=== PATIENT | female | born 2000 | race Caucasian/White ===

== ENCOUNTER → 2019-03-17 | Outpatient (CLI) | payer BC ==
--- NOTE | 2019-03-17 16:04 | RADIOLOGY REPORT (SQ) ---
EXAM DESCRIPTION: VENOUS BILATERAL LOWER COMPLETED DATE/TIME: 03/17/2019 3:45 pm REASON FOR STUDY: EDEMA R23.0 CYANOSIS COMPARISON: None. TECHNIQUE: Dynamic and static wang scale and color images acquired of both lower extremity venous sy stems. Selected spectral images acquired with additional compression and augmentation maneuvers. Imag es stored on PACS. LIMITATIONS: None. FINDINGS: RIGHT LEG COMMON FEMORAL AND FEMORAL: Normal phasicity, compression and augmentation. No visualized echogenic m aterial on wang scale. No defects on color images. POPLITEAL: Normal compression and augmentation. No visualized echogenic material on wang scale. No de fects on color images. CALF VESSELS: Normal compression and augmentation. No visualized echogenic material on wang scale. No defects on color image. GSV AND SSV: Normal compression. No visualized echogenic material on wang scale. No defects on color images. ANY DEEP VENOUS INSUFFICIENCY: Not evaluated. ANY EVIDENCE OF POPLITEAL CYST: No. OTHER: No other significant finding. LEFT LEG COMMON FEMORAL AND FEMORAL: Normal phasicity, compression and augmentation. No visualized echogenic m aterial on wang scale. No defects on color images. POPLITEAL: Normal compression and augmentation. No visualized echogenic material on wang scale. No de fects on color images. CALF VESSELS: Normal compression and augmentation. No visualized echogenic material on wang scale. No defects on color images. GSV AND SSV: Normal compression. No visualized echogenic material on wang scale. No defects on color images. ANY DEEP VENOUS INSUFFICIENCY: Not evaluated. ANY EVIDENCE POPLITEAL CYST: No. OTHER: No other significant finding. IMPRESSION: NO EVIDENCE DVT OR SVT IN EITHER LEG. TECHNICAL DOCUMENTATION: JOB ID: [id number] [employer]- All Rights Reserved Reading location - IP/workstation name: [email or web address]
== END ==
LOC: SP 09:55
PROVIDERS: ATTEND Specialist
DX: R23.0 Cyanosis (principal)
CPT/HCPCS: 93970

== ENCOUNTER 2019-04-07 15:23 | Emergency (ER) | payer OTHER, BC ==
[2019-04-07 15:49] VITALS: BP 150/85
[2019-04-07] MEDS ORDERED: NAPROXEN 250 MG TABLET PO ONE (16:39)
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
== END 2019-04-07 17:24 | disposition home or self-care (01) ==
LOC: ER 15:23
DX: S89.92XA Unspecified injury of left lower leg, initial encounter (principal); V43.52XA Car driver injured in collision with other type car in traffic accident, initial encounter; Y92.488 Other paved roadways as the place of occurrence of the external cause
CPT/HCPCS: 99283

== ENCOUNTER 2019-04-27 17:58 | Emergency (ER) | payer BC ==
[2019-04-27 18:24] VITALS: BP 124/80
[2019-04-27] MEDS ORDERED: DIPH/PERTUSS(ACELL)/TETANUS VAC/PF 0.5 ML SYR (>=10YO) IM ONE (18:50)
[2019-04-27] MEDS ORDERED: IBUPROFEN 600 MG TABLET PO ONE (18:50)
--- NOTE | 2019-04-27 18:51 | ER Document Report ---
HPI - HPI Patient complains to provider of: Finger laceration Time Seen by Provider: 04/27/19 18:45 Pain Level: 1 Notes: 18-year-old female to the emergency department with complaints of a finger laceration to her left index finger that occurred just prior to arrival. She states that she is cutting some cabbage. She states that she is not up-to-date on her tetanus immunization. She states that she is right-hand dominant. She denies any change in range of motion or any numbness and tingling to the finger. - ROS Systems Reviewed and Negative: Yes All other systems reviewed and negative - CONSTITUTIONAL Constitutional: DENIES: Fever, Chills - EENT EENT: DENIES: Sore Throat, Ear Pain - NEURO Neurology: DENIES: Headache - CARDIOVASCULAR Cardiovascular: DENIES: Chest pain - RESPIRATORY Respiratory: DENIES: Trouble Breathing, Coughing - GASTROINTESTINAL Gastrointestinal: DENIES: Abdominal Pain, Nausea, Patient vomiting, Diarrhea - MUSCULOSKELETAL Musculoskeletal: REPORTS: Extremity pain Notes: Left index finger pain - DERM Skin Color: Normal Skin Problems: Laceration Notes: Laceration to the left index finger Past Medical History - General Information source: Patient - Social History Smoking Status: Never Smoker Chew tobacco use (# tins/day): No Frequency of alcohol use: None Drug Abuse: None Family History: None Patient has suicidal ideation: No Patient has homicidal ideation: No Musculoskeletal Medical History: Reports Hx Musculoskeletal Trauma Traumatic Medical History: Reports: Hx Fractures - left elbow Past Surgical History: Reports: Hx Orthopedic Surgery - Immunizations Immunizations up to date: Yes Hx Diphtheria, Pertussis, Tetanus Vaccination: Yes Vertical Provider Document - CONSTITUTIONAL Agree With Documented VS: Yes Exam Limitations: No Limitations General Appearance: WD/WN, No Apparent Distress - INFECTION CONTROL TRAVEL OUTSIDE OF THE [place] IN LAST 30 DAYS: No - HEENT HEENT: Atraumatic, PERRLA - NECK Neck: Normal Inspection, Supple - RESPIRATORY Respiratory: Breath Sounds Normal. negative: Rales, Rhonchi, Wheezing - CARDIOVASCULAR Cardiovascular: Regular Rate, Regular Rhythm, No Murmur - GI/ABDOMEN Gastrointestinal: Abdomen Soft, Abdomen Non-Tender - MUSCULOSKELETAL/EXTREMETIES Notes: There is a superficial laceration with bleeding controlled to the pad of the left index finger. It does not cross the joint line. Bleeding is controlled. There is no decrease in range of motion. She has 5 out of 5 strength in testing of both of her flexor tendons in the finger as well as her extensor tendon. There is no evidence for foreign body. Cap refill is less than 2 seconds. Rad ial pulses are intact and equal. Handgrip is 5 out of 5 bilaterally - NEURO Level of Consciousness: Awake, Alert Motor/Sensory: No Motor Deficit, No Sensory Deficit, No Pronator Drift - DERM Integumentary: Warm, Dry, Laceration - See musculoskeletal for discussion of finger laceration Course - Re-evaluation Re-evalutation: 04/27/19 19:41 Impression: Left index finger laceration. Applied Dermabond to it. Patient tolerated the procedure well. Will discharge home. She has had an updated tetanus today. - Vital Signs Vital signs: Temp Pulse Resp BP Pulse Ox 98.9 F 86 16 124/80 98 04/27/19 18:21 04/27/19 18:21 04/27/19 18:21 04/27/19 18:21 04/27/19 18:21 Procedures - Laceration/Wound Repair Left Finger 2nd digit Time completed: 19:31 Wound length (cm): 1 Wound's Depth, Shape: Superficial Laceration pre-procedure: Chloraprep applied Wound explored: Clean Wound Repaired With: Dermabond Post-procedure NV exam normal: Yes Complications: No Discharge - Discharge Clinical Impression: Laceration of left index finger Qualifiers: Encounter type: initial encounter Damage to nail status: without damage Foreign body presence: without foreign body Qualified Code(s): S61.211A - Laceration without foreign body of left index finger without damage to nail, initial encounter Condition: Stable Disposition: HOME, SELF-CARE Instructions: Skin Adhesive Closure ([facility]) Additional Instructions: Keep wound clean and dry. Do not immerse finger in water. Monitor for any worsening pain, fevers, redness, pus draining from the site. Referrals: MARCIA GARCÍA MD [Primary Care Provider] - Follow up in 1 week
== END 2019-04-27 19:40 | disposition home or self-care (01) ==
LOC: ER 17:58
DX: S61.211A Laceration without foreign body of left index finger without damage to nail, initial encounter (principal); W45.8XXA Other foreign body or object entering through skin, initial encounter; Y93.G9 Activity, other involving cooking and grilling; Z23 Encounter for immunization
CPT/HCPCS: 90471; 90715; 99282

== ENCOUNTER 2019-05-11 20:44 | Emergency (ER) | payer BC ==
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
[2019-05-12] MEDS ORDERED: LIDOCAINE 1%/EPINEPHRINE INJ 20 ML VIAL INJ ONE (00:12)
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
[2019-05-12] MEDS ORDERED: ONDANSETRON 4 MG TAB.RAPDIS ONE (01:52)
[2019-05-12] MEDS ORDERED: ONDANSETRON 4 MG TAB.RAPDIS PO ONE (01:54)
[2019-05-12 02:28] VITALS: BP 117/64
== END 2019-05-12 02:28 | disposition home or self-care (01) ==
LOC: ER 20:44
DX: S61.412A Laceration without foreign body of left hand, initial encounter (principal); W26.0XXA Contact with knife, initial encounter; Y93.89 Activity, other specified; R42 Dizziness and giddiness; R11.0 Nausea
CPT/HCPCS: 99282; 12001; S0119; J3490

== ENCOUNTER → 2019-05-27 | Outpatient (CLI) | payer BC ==
[2019-05-27 11:13] LABS: A TYPE INFLUENZA AG NEGATIVE (NEGATIVE); B INFLUENZA AG NEGATIVE (NEGATIVE)
== END ==
LOC: RDC 09:40
PROVIDERS: ATTEND Registered Nurse
DX: Z20.828 Contact with and (suspected) exposure to other viral communicable diseases (principal)
CPT/HCPCS: 87070; 87635; 87804; 87880

== ENCOUNTER 2020-03-13 13:50 | Emergency (ER) | payer BC ==
[2020-03-13] MEDS ORDERED: NORMAL SALINE 1000 ML 1,000 ML IV ONE ×2 (14:28→15:31)
[2020-03-13 14:34] LABS: ABSOLUTE BASOPHILS # (AUTO) 0.1 10^3/uL (0.0-0.2); ABSOLUTE EOSINOPHILS # (AUTO) 1.8 10^3/uL (0.0-0.6); ABSOLUTE LYMPHOCYTES (AUTO) 3.2 10^3/uL (0.5-4.7); ABSOLUTE MONOCYTES (AUTO) 0.5 10^3/uL (0.1-1.4); ABSOLUTE NEUT (AUTO) 4.4 10^3/uL (1.7-8.2); BASOPHILS % (AUTO) 0.6 % (0-2); EOSINOPHILS % (AUTO) 18.3 % (0-6); HEMATOCRIT 37.8 % (36.0-47.0); HEMOGLOBIN 12.6 g/dL (12.0-15.5); LYMPHOCYTES % (AUTO) 32.1 % (13-45); MEAN CORPUSCULAR HEMOGLOBIN 28.1 pg (27.0-33.4); MEAN CORPUSCULAR HGB CONC 33.3 g/dL (32.0-36.0); MEAN CORPUSCULAR VOLUME 84 fl (80-97); MONOCYTES % (AUTO) 5.2 % (3-13); PLATELET COUNT 267 10^3/uL (150-450); RED BLOOD COUNT 4.48 10^6/uL (3.72-5.28); SEGMENTED NEUTROPHILS % (AUTO) 43.8 % (42-78); TOTAL CELLS COUNTED % (AUTO) 100 %
--- NOTE | 2020-03-13 14:40 | ER Document Report ---
ED Syncope and Near Syncope - General Chief Complaint: Syncope Stated Complaint: DIZZINESS,SYNCOPAL EPISODE Time Seen by Provider: 03/13/20 14:25 Notes: HPI: 19-year-old female who presents today stating she is felt lightheaded and dizzy for about a week. She states it is completely positional only when she stands up from a seated or lying position. Patient is on clonidine 0.3 mg nightly that is increased this past week secondary to nightmares. She is also lost 10 pounds over the last 2 months. No fevers, vomiting, chest pain, cough, vomiting, weakness or numbness. No double or blurry vision or headaches. No history of syncope. ROS: See HPI All other review of systems reviewed and otherwise negative Reviewed vital signs and nursing note as charted by RN. PHYSICAL EXAM: CONSTITUTIONAL: Alert and oriented and responds appropriately to questions. Well-appearing; well-nourished HEAD: Normocephalic; atraumatic EYES: PERRL; no nystagmus ENT: Normal nose; no rhinorrhea; moist mucous membranes; pharynx without lesions noted NECK: Supple without meningismus; non-tender; no cervical lymphadenopathy, no masses CARD: Regular rate and rhythm; no murmurs; symmetric distal pulses RESP: Normal chest excursion without splinting or tachypnea; breath sounds clear and equal bilaterally; no wheezes, no rhonchi, no rales ABD/GI: Normal bowel sounds; non-distended; soft, non-tender; no palpable organomegaly or masses BACK: The back appears normal and is non-tender to palpation EXT: Normal ROM in all joints; non-tender to palpation; no edema SKIN: No acute lesions noted NEURO: CN 2-12 intact; 5/5 bilateral upper and lower extremity strength with sensation intact to light touch PSYCH: The patient's mood and manner are appropriate. Grooming and personal hygiene are appropriate. TRAVEL OUTSIDE OF THE [place] IN LAST 30 DAYS: No - Related Data Allergies/Adverse Reactions: No Known Allergies Allergy (Verified 04/27/19 18:49) Past Medical History - Social History Smoking Status: Unknown if Ever Smoked Family History: None Patient has homicidal ideation: No Musculoskeletal Medical History: Reports Hx Musculoskeletal Trauma Traumatic Medical History: Reports: Hx Fractures - left elbow Past Surgical History: Reports: Hx Orthopedic Surgery - left elbow - Immunizations Immunizations up to date: Yes Hx Diphtheria, Pertussis, Tetanus Vaccination: Yes Physical Exam - Vital signs Vitals: Temp Pulse Resp BP Pulse Ox 98.1 F 71 16 99/60 L 100 03/13/20 13:54 03/13/20 13:54 03/13/20 13:54 03/13/20 13:54 03/13/20 13:54 Course - Re-evaluation Re-evalutation: EKG shows a heart of 62, normal sinus rhythm, normal axis, no ST elevation or depression. 03/13/20 14:39 Given the above history and physical examination with recent increase in her nighttime clonidine medications from 0.2 mg to 0.3 mg daily with a 10 pound weight loss in the last 2 weeks, I will provide fluids and obtain basic labs and electrolytes as well as a urine test. I am concerned about the possibility of this being related to her clonidine and her recent weight loss. I will also add on a TSH and reassess. I do believe PE, ectopic , or cardiac dysrhythmia to be unlikely at this moment. 03/13/20 15:42 Labs as recorded. Patient feels better. Another half a liter of fluid is being provided. Had a long discussion with the patient regarding her nightmares and the large doses of clonidine that she takes. I have asked her to go back to 0.2 mg and to follow-up with her primary care physician regarding this medication and to return immediately with any repeat or worsening symptoms. - Vital Signs Vital signs: Temp Pulse Resp BP Pulse Ox 98.1 F 77 14 103/62 100 03/13/20 13:54 03/13/20 14:50 03/13/20 15:01 03/13/20 15:01 03/13/20 15:01 - Laboratory Results Result Diagrams: 03/13/20 14:17 03/13/20 14:17 Laboratory Results Interpreted: 03/13/20 03/13/20 14:17 14:17 Eos % (Auto) 18.3 H Absolute Eos (auto) 1.8 H Glucose 117 H Critical Laboratory Results Reviewed: No Critical Results - Radiology Results Critical Radiology Results Reviewed: No Critical Results Discharge - Discharge Clinical Impression: Lightheaded, Syncope and collapse Condition: Good Disposition: HOME, SELF-CARE Additional Instructions: Come back immediately with any lightheadedness, dizziness, repeat episodes of syncope, fevers or vomiting, chest pain, or any other acute problems. Please follow-up with the primary care physician for reassessment of the clonidine dosing as we have discussed. I recommend decreasing the dose to 0.1 or 0.2 mg at night and to make sure that you stay well-hydrated.
[2020-03-13 14:44] LABS: ALBUMIN 3.9 g/dL (3.5-5.0); ALKALINE PHOSPHATASE 53 U/L (38-126); ANION GAP 5 (5-19); ASPARTATE AMINO TRANSFERASE 22 U/L (14-36); BILIRUBIN,DIRECT 0.1 mg/dL (0.0-0.4); BILIRUBIN,TOTAL 0.2 mg/dL (0.2-1.3); BLOOD UREA NITROGEN 14 mg/dL (7-20); CALCIUM 9.4 mg/dL (8.4-10.2); CARBON DIOXIDE 28 mmol/L (22-30); CHLORIDE 104 mmol/L (98-107); GLUCOSE 117 mg/dL (75-110); POTASSIUM 3.9 mmol/L (3.6-5.0); TOTAL PROTEIN 6.5 g/dL (6.3-8.2)
[2020-03-13 16:43] VITALS: BP 102/67
--- NOTE | 2020-03-13 22:40 | EKG REPORT ---
SEVERITY:- NORMAL ECG - SINUS RHYTHM : Confirmed by: Rito Estrada 13-Mar-2020 22:39:44
== END 2020-03-13 16:43 | disposition home or self-care (01) ==
LOC: ER 13:50
DX: R42 Dizziness and giddiness (principal); R55 Syncope and collapse
CPT/HCPCS: 93005; 99284; 96360; 96361; 36415; 84443; 85025; 80053; 93010; J7030

== ENCOUNTER 2020-03-19 22:00 | Observation (INO) | payer BC ==
--- NOTE | 2020-03-20 00:08 | ER Document Report ---
ED Medical Screen (RME) - General Chief Complaint: Abscess Stated Complaint: ABSCESS BUTTOCKS Time Seen by Provider: 03/19/20 23:57 Primary Care Provider: MARCIA GARCÍA MD [Primary Care Provider] - Follow up as needed Mode of Arrival: Ambulatory Information source: Patient TRAVEL OUTSIDE OF THE [place] IN LAST 30 DAYS: No - HPI Patient complains to provider of: Rectal pain Notes: 03/20/20 00:06 Patient here with complaints of rectal pain. The patient states that over the last few days she has had progressively worsening pain near her rectum and has noticed a mass that has grown in this area. No history of abscess or hemorrhoids. She also complains of some mild lower abdominal discomfort at t imes. No fever. Exam: Nontoxic, no distress. Lungs clear and equal throughout. Heart sounds normal. 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 Patient noted to have a large fluctuant/indurated tender abscess along the superior aspect of her rectum. An initial examination was made on the patient as part of the triage process, and it was determined a more comprehensive evaluation was necessary. Initial orders were placed and patient was transferred to another provider in the ED who assumed care and finished evaluation and plan. - Related Data Allergies/Adverse Reactions: No Known Allergies Allergy (Verified 04/27/19 18:49) Past Medical History Musculoskeltal Medical History: Reports Hx Musculoskeletal Trauma Traumatic Medical History: Reports: Hx Fractures - left elbow Past Surgical History: Reports: Hx Orthopedic Surgery - left elbow - Immunizations Immunizations up to date: Yes Hx Diphtheria, Pertussis, Tetanus Vaccination: Yes Physical Exam - Vital signs Vitals: Temp Pulse Resp BP Pulse Ox 98.2 F 87 17 138/91 H 100 03/19/20 22:04 03/19/20 22:04 03/19/20 22:04 03/19/20 22:04 03/19/20 22:04 Course - Vital Signs Vital signs: Temp Pulse Resp BP Pulse Ox 98.2 F 87 17 138/91 H 100 03/19/20 22:04 03/19/20 22:04 03/19/20 22:04 03/19/20 22:04 03/19/20 22:04 Doctor's Discharge - Discharge Referrals: MARCIA GARCÍA MD [Primary Care Provider] - Follow up as needed
[2020-03-20 01:31] LABS: ABSOLUTE BASOPHILS # (AUTO) 0.1 10^3/uL (0.0-0.2); ABSOLUTE EOSINOPHILS # (AUTO) 2.2 10^3/uL (0.0-0.6); ABSOLUTE LYMPHOCYTES (AUTO) 2.9 10^3/uL (0.5-4.7); ABSOLUTE MONOCYTES (AUTO) 0.8 10^3/uL (0.1-1.4); ABSOLUTE NEUT (AUTO) 6.6 10^3/uL (1.7-8.2); BASOPHILS % (AUTO) 0.9 % (0-2); EOSINOPHILS % (AUTO) 17.4 % (0-6); HEMOGLOBIN 12.4 g/dL (12.0-15.5); MEAN CORPUSCULAR HEMOGLOBIN 28.1 pg (27.0-33.4); MEAN CORPUSCULAR HGB CONC 33.6 g/dL (32.0-36.0); MEAN CORPUSCULAR VOLUME 84 fl (80-97); PLATELET COUNT 231 10^3/uL (150-450); RED BLOOD COUNT 4.43 10^6/uL (3.72-5.28); RED CELL DISTRIBUTION WIDTH 14.1 % (11.5-14.0); SEGMENTED NEUTROPHILS % (AUTO) 52.7 % (42-78); TOTAL CELLS COUNTED % (AUTO) 100 %; WHITE BLOOD COUNT 12.5 10^3/uL (4.0-10.5)
[2020-03-20 01:52] LABS: ALKALINE PHOSPHATASE 68 U/L (38-126); ANION GAP 8 (5-19); ASPARTATE AMINO TRANSFERASE 29 U/L (14-36); BILIRUBIN,DIRECT 0.2 mg/dL (0.0-0.4); BILIRUBIN,TOTAL 0.3 mg/dL (0.2-1.3); BLOOD UREA NITROGEN 14 mg/dL (7-20); CALCIUM 9.7 mg/dL (8.4-10.2); CARBON DIOXIDE 27 mmol/L (22-30); CHLORIDE 106 mmol/L (98-107); GLUCOSE 100 mg/dL (75-110); TOTAL PROTEIN 6.7 g/dL (6.3-8.2)
--- NOTE | 2020-03-20 02:37 | ER Document Report ---
ED Skin Rash/Insect Bite/Abscs - General Chief Complaint: Abscess Stated Complaint: ABSCESS BUTTOCKS Time Seen by Provider: 03/19/20 23:57 Mode of Arrival: Ambulatory Notes: Patient is a 19 year old female that comes emergency department for chief complaint of about 3 days of worsening pain in the rectal area. She states that it feels like a mass, the area is gotten a lot bigger, she has very painful bowel movements, she is unable to sit down. She states she had a few chills today. She denies recent constipation, fever, nausea/vomiting, or any other complaints. She denies history of the same. She denies any surgeries or daily medications. She denies . TRAVEL OUTSIDE OF THE [place] IN LAST 30 DAYS: No - Related Data Allergies/Adverse Reactions: No Known Allergies Allergy (Verified 04/27/19 18:49) Past Medical History - General Information source: Patient - Social History Smoking Status: Never Smoker Frequency of alcohol use: None Drug Abuse: None Lives with: Family Family History: None Musculoskeletal Medical History: Reports Hx Musculoskeletal Trauma Traumatic Medical History: Reports: Hx Fractures - left elbow Past Surgical History: Reports: Hx Orthopedic Surgery - left elbow - Immunizations Immunizations up to date: Yes Hx Diphtheria, Pertussis, Tetanus Vaccination: Yes Review of Systems - Review of Systems Constitutional: No symptoms reported EENT: No symptoms reported Cardiovascular: No symptoms reported Respiratory: No symptoms reported Gastrointestinal: See HPI Genitourinary: No symptoms reported Female Genitourinary: No symptoms reported Musculoskeletal: No symptoms reported Skin: See HPI Hematologic/Lymphatic: No symptoms reported Neurological/Psychological: No symptoms reported Physical Exam - Vital signs Vitals: Temp Pulse Resp BP Pulse Ox 98.2 F 87 17 138/91 H 100 03/19/20 22:04 03/19/20 22:04 03/19/20 22:04 03/19/20 22:04 03/19/20 22:04 - Notes Notes: GENERAL: Alert, interacts well. Patient appears moderately uncomfortable, sitting on her side HEAD: Normocephalic, atraumatic. EYES: Pupils equal, round, and reactive to light. Extraocular movements intact. ENT: Oral mucosa moist, tongue midline. Oropharynx unremarkable. Airway patent. NECK: Full range of motion. Supple. Trachea midline. No lymphadenopathy. LUNGS: Clear to auscultation bilaterally, no wheezes, rales, or rhonchi. No respiratory distress. Non-tender chest wall. HEART: Regular rate and rhythm. No murmur ABDOMEN: Soft, non-tender. Non-distended. RECTAL: There is a erythematous, tender, swollen, fluctuant area at approximately the 1 o'clock position at the rectum extending and including the sphincter. Very tender rectal exam. No bleeding, drainage, or other abnormality noted. Exam performed with Aline RN at bedside. EXTREMITIES: Moves all 4 extremities spontaneously. No edema, normal radial and dorsalis pedis pulses bilaterally. No cyanosis. BACK: no cervical, thoracic, lumbar midline tenderness. No saddle anesthesia, normal distal neurovascular exam. Moves all extremities in full range of motion. NEUROLOGICAL: Alert and oriented x3. Normal speech. Cranial nerves II through XII grossly intact. Strength 5/5 in all extremities. PSYCH: Normal affect, normal mood. SKIN: Warm, dry, normal turgor. No rashes or lesions noted. Course - Re-evaluation Re-evalutation: Vital signs unremarkable. CBC shows leukocytosis with elevation of neutrophils but otherwise unremarkable. Remaining work-up unremarkable. test negative. On physical exam patient has an abscess that includes the rectal sphincter and patient has a very tender rectal exam, see physical exam. Areas consistent with rectal abscess that will require surgical evaluation. I called and spoke with Dr. White, general surgeon, patient will be admitted to his service, he does not recommend CAT scan, he recommends rapid Covid testing. Patient states appreciation and agreement. - Vital Signs Vital signs: Temp Pulse Resp BP Pulse Ox 98.3 F 76 18 138/71 H 100 03/20/20 05:28 03/20/20 05:28 03/20/20 05:28 03/20/20 05:28 03/20/20 05:28 - Laboratory Results Result Diagrams: 03/20/20 01:08 03/20/20 01:08 Laboratory Results Interpreted: 03/20/20 01:08 WBC 12.5 H RDW 14.1 H Eos % (Auto) 17.4 H Absolute Eos (auto) 2.2 H Critical Laboratory Results Reviewed: No Critical Results - Radiology Results Critical Radiology Results Reviewed: No Critical Results Discharge - Discharge Clinical Impression: Rectal abscess Condition: Stable Disposition: ADMITTED INPATIENT Admitting Provider: Surgicalist Unit Admitted: Surgical Floor
[2020-03-20] MEDS ORDERED: PIPERACILLIN/TAZOBACTAM 3.375 GM VIAL IV ONE ×2 (03:22→03:23)
[2020-03-20] MEDS: PIPERACILLIN SODIUM/TAZOBACTAM 3.375 GM in NORMAL SALINE 100 ML IV SCH ×4 (03:29→20:08)
[2020-03-20] MEDS: MORPHINE SULFATE 10 MG/ML INJ IV PRN ×2 (03:30→18:35)
[2020-03-20] MEDS: ONDANSETRON HCL INJ/PF 4 MG/2 ML SDV IV PRN (03:32)
--- NOTE | 2020-03-20 05:10 | PDOC H&P ---
History of Present Illness Admission Date/PCP: 03/20/20 03:14 Patient complains of: Rectal pain and swelling History of Present Illness: MARIA L KHAN is a 19 year old female with a 3-day history of rectal pain and swelling. Her pain began as mild, and her swelling was a "pea-sized knot". Her pain and swelling worsened significantly over the subsequent 48 hours. When the pain became unbearable, the patient presented to the emergency department for evaluation. The patient was found to have leukocytosis and evidence of a large perirectal abscess on physical exam. I was consulted for management of the patient. The patient reports malaise, but denies any fatigue, fevers, cough, chest pain, shortness of breath, nausea, vomiting, constipation, dysuria, dizziness, orthostasis. Past Medical History Psychiatric Medical History: Reports: General Anxiety Disorder Past Surgical History Past Surgical History: Reports: Orthopedic Surgery - left elbow, Tonsillectomy Social History Smoking Status: Current Every Day Smoker Electronic Cigarette use?: No Hx Recreational Drug Use: No Family History Family History: None Parental Family History Reviewed: Yes Children Family History Reviewed: Yes Sibling(s) Family History Reviewed.: Yes Medication/Allergy Home Medications: Fluoxetine HCl [Prozac] 40 mg PO DAILY 05/11/19 Allergies/Adverse Reactions: No Known Allergies Allergy (Verified 04/27/19 18:49) Review of Systems Constitutional: ABSENT: anorexia, chills, fatigue Eyes: ABSENT: visual disturbances Ears: ABSENT: hearing changes Nose, Mouth, and Throat: ABSENT: sore throat Cardiovascular: ABSENT: chest pain, dyspnea on exertion Respiratory: ABSENT: cough Gastrointestinal: PRESENT: other - Rectal pain and swelling. ABSENT: abdominal pain Genitourinary: ABSENT: dysuria Musculoskeletal: ABSENT: back pain Integumentary: ABSENT: wounds Neurological: ABSENT: confusion, convulsions, dizziness Psychiatric: ABSENT: anxiety, depression Endocrine: ABSENT: cold intolerance, heat intolerance Hematologic/Lymphatic: ABSENT: easy bleeding, easy bruising Physical Exam Vital Signs: Temp Pulse Resp BP Pulse Ox 98.2 F 87 17 138/91 H 100 03/19/20 22:04 03/19/20 22:04 03/19/20 22:04 03/19/20 22:04 03/19/20 22:04 Intake & Output 03/18/20 03/19/20 03/20/20 06:59 06:59 06:59 Weight 59.6 kg General appearance: PRESENT: no acute distress, cooperative Head exam: PRESENT: atraumatic, normocephalic Eye exam: PRESENT: EOMI, PERRLA. ABSENT: scleral icterus Mouth exam: PRESENT: moist, neck supple Neck exam: ABSENT: meningismus, tenderness, thyromegaly, tracheal deviation Respiratory exam: PRESENT: unlabored. ABSENT: tachypnea, wheezes Cardiovascular exam: ABSENT: tachycardia Vascular exam: PRESENT: normal capillary refill GI/Abdominal exam: PRESENT: soft. ABSENT: distended, tenderness Rectal exam: PRESENT: other - Large fluctuant mass in the 12:00 (dorsal) position. It is markedly tender to palpation. Extremities exam: ABSENT: clubbing Musculoskeletal exam: ABSENT: deformity Neurological exam: PRESENT: alert, awake, oriented to person, oriented to place, oriented to time, oriented to situation Psychiatric exam: ABSENT: agitated, anxious, depressed Focused psych exam: ABSENT: delusional Skin exam: ABSENT: cyanosis, jaundice Results Laboratory Results: 03/20/20 01:08 03/20/20 01:08 03/20/20 03/20/20 03/20/20 01:08 01:08 01:08 WBC 12.5 H RBC 4.43 Hgb 12.4 Hct 37.0 MCV 84 MCH 28.1 MCHC 33.6 RDW 14.1 H Plt Count 231 Seg Neutrophils % 52.7 Sodium 140.7 Potassium 4.0 Chloride 106 Carbon Dioxide 27 Anion Gap 8 BUN 14 Creatinine 0.58 Est GFR ( Amer) > 60 Glucose 100 Calcium 9.7 Total Bilirubin 0.3 AST 29 Alkaline Phosphatase 68 Total Protein 6.7 Albumin 4.0 Serum HCG, Qual NEGATIVE Assessment & Plan - Diagnosis (1) Perirectal abscess Is this a current diagnosis for this admission?: Yes - Time Anticipated Discharge Disposition: Home, Self Care Anticipated Discharge Timeframe: within 24 hours - Plan Summary Plan Summary: 19-year-old female with a 3-day history of pain and swelling in the rectum. On examination, she has an obvious perirectal abscess. I recommended the patient be admitted to the hospital, obtain IV antibiotics, and undergo operative intervention to drain her abscess. I discussed the likely possibility of anorectal fistula formation in the coming weeks after incision and drainage. The patient has expressed understanding, and is in agreement with the treatment plan. Rapid Covid test now. Risk/benefits discussed, informed consent obtained, and all questions answered.
[2020-03-20] MEDS: KETOROLAC TROMETHAMINE INJ/PF 30 MG/1 ML SDV IV SCH ×2 (06:43→14:33)
[2020-03-20] MEDS: ACETAMINOPHEN 1,000 MG/100 ML RTUPB IV SCH ×2 (06:43→14:33)
[2020-03-20] MEDS: FAMOTIDINE INJ/PF 20 MG/2 ML SDV IV SCH (09:47)
[2020-03-20] MEDS ORDERED: SUCCINYLCHOLINE CHLORIDE INJ 200 MG/10 ML VIAL ONE (09:51)
[2020-03-20] MEDS ORDERED: BUPIVACAINE HCL 0.25 % INJ/PF (2.5 MG/1 ML) 30 ML VIAL ONE (10:16)
[2020-03-20] MEDS ORDERED: FENTANYL CITRATE INJ/PF 100 MCG/2 ML AMPUL ONE (10:21)
[2020-03-20] MEDS ORDERED: MIDAZOLAM 2 MG/2 ML INJ ONE (10:21)
[2020-03-20] MEDS ORDERED: PROPOFOL INJ 200 MG/20 ML VIAL IV ONE (10:22)
[2020-03-20] MEDS ORDERED: DEXAMETHASONE SOD PHOSPHATE INJ 4 MG/1 ML VIAL ONE (10:41)
[2020-03-20] MEDS ORDERED: ONDANSETRON HCL INJ/PF 4 MG/2 ML SDV ONE (10:41)
[2020-03-20] MEDS ORDERED: OXYCODONE-ACETAMINOPHEN 5-325 MG TABLET PO PRN ×2 (11:11)
[2020-03-20] MEDS ORDERED: DIPHENHYDRAMINE HCL 50 MG/ML VIAL IV PRN (11:11)
[2020-03-20] MEDS ORDERED: MORPHINE SULFATE 10 MG/ML INJ IV PRN (11:11)
[2020-03-20] MEDS ORDERED: PROMETHAZINE HCL INJ 25 MG/1 ML VIAL IV PRN ×2 (11:11)
[2020-03-20] MEDS ORDERED: MEPERIDINE HCL/PF INJ 25 MG/1 ML DISP.SYRIN IV PRN (11:11)
[2020-03-20] MEDS ORDERED: FENTANYL CITRATE INJ/PF 100 MCG/2 ML AMPUL IV PRN ×3 (11:11)
[2020-03-20] MEDS ORDERED: ACETAMINOPHEN WITH CODEINE #3 TABLET PO PRN (11:23)
--- NOTE | 2020-03-20 11:32 | Operative Report ---
Operative Report DATE OF SURGERY: 03/20/20 PREOPERATIVE DIAGNOSIS: Perirectal abscess POSTOPERATIVE DIAGNOSIS: Same, posterior position OPERATION: 1. Examination under anesthesia. 2. Drainage, and packing of posterior perirectal abscess SURGEON: TED GILL ANESTHESIA: GA TISSUE REMOVED OR ALTERED: Poss COMPLICATIONS: None ESTIMATED BLOOD LOSS: Scant INTRAOPERATIVE FINDINGS: See below PROCEDURE: The patient was taken the preop holding area to the main operating where general anesthesia was induced. She was then rolled into the prone jackknife position, buttock taped widely open. Anal area prepped and draped in sterile fashion with Betadine Surgical plan and surgical timeout were conducted. Findings were significant for a 2 x 4 cm elevated swollen erythematous soft tissue mass in the posterior position, in midline. This was anesthetized with quarter percent Marcaine. The perianal tissue circumferentially was also anesthetized with quarter percent Marcaine. Approximately 3 cm incision was made radially in the mid posterior position with the immediate evacuation of approximately 15 cc of stacy pus. This was sent for Gram stain, culture and sensitivity. The wound cavity was irrigated out. There appeared to be several strands of muscle fiber suspended in the mid section of a cavity which were divided with cautery, thereby needing a free open cavity approximately 4-1/2 x 4-1/2 cm in diameter. The anal canal was dilated gently to admit to adult fingers. A Hill-Ching retractor was used to inspect the anoderm, and the anal canal up to and above the dentate line. There was no visible or palpable evidence of any anorectal pathology. I could not appreciate an internal opening, or site of granulation tissue in the mucosa. I used a narrow blunt tipped probe to explore the abscess cavity, directing the probe towards the anal canal. I was not demonstrate a fistula in ano. I felt the exam under anesthesia was complete. We irrigated the abscess cavity out again, packed with approximately 1-1/2 feet of quarter inch iodoform packing. Dry gauze, and panties applied. Patient was rolled to the supine position, extubated, and taken to recovery in stable condition. Plan: 1. Advance diet as tolerated, continue pain medication 2. Anticipate discharge home, on p.o. pain medicine. Follow-up on wound cultures and remove packing in 24 hours.
[2020-03-20] MEDS ORDERED: ACETAMINOPHEN INJ/PF 1000 MG/100 ML SDV IV SCH (12:00)
[2020-03-20] MEDS: DOCUSATE SODIUM 100 MG CAPSULE PO SCH (17:16)
[2020-03-21] MEDS: FAMOTIDINE INJ/PF 20 MG/2 ML SDV IV SCH ×2 (00:56→09:26)
[2020-03-21] MEDS: KETOROLAC TROMETHAMINE INJ/PF 30 MG/1 ML SDV IV SCH ×2 (01:36→06:00)
[2020-03-21] MEDS: ACETAMINOPHEN 1,000 MG/100 ML RTUPB IV SCH ×2 (01:36→05:59)
[2020-03-21] MEDS: MORPHINE SULFATE 10 MG/ML INJ IV PRN (01:42)
[2020-03-21] MEDS: PIPERACILLIN SODIUM/TAZOBACTAM 3.375 GM in NORMAL SALINE 100 ML IV SCH ×2 (04:04→09:17)
[2020-03-21] MEDS: ONDANSETRON HCL INJ/PF 4 MG/2 ML SDV IV PRN (04:08)
[2020-03-21] MEDS: DOCUSATE SODIUM 100 MG CAPSULE PO SCH (09:18)
--- NOTE | 2020-03-21 10:25 | PDOC DISCHARGE SUMMARY ---
General - Admit/Disc Date/PCP Admission Date/Primary Care Provider: 03/20/20 03:14 Discharge Date: 03/21/20 - Discharge Diagnosis Final Diagnosis: Perirectal abscess - Assessment Summary: Patient is 19-year-old white female with clinical manifestation of perirectal abscess. She was admitted to the surgical service, kept n.p.o., on IV fluids and taken to the operating room by Dr. Hernandes where she underwent examined anesthesia, drainage and packing of perirectal abscess. She tolerated procedure well, no postoperative problems, started on a diet. The following morning her p acking was removed, and she was started on sitz bath's. A small wick was placed back in the drainage cavity. She was discharged home with instructions for Tylenol, Motrin or Toradol, with prescription provided, for breakthrough pain. She is to call [facility] tomorrow, March 22, for an appointment with Dr. Mao in 1 to 2 weeks. No activity restrictions. - Additional Information Resuscitation Status: Full Code Discharge Activity: Activity As Tolerated Referrals: [facility] [Provider Group] (FOLLOW UP IN 1 WEEK) Home Medications: Cryselle 1 tab PO DAILY 03/20/20 Escitalopram Oxalate [Lexapro 10 mg Tablet] 10 mg PO DAILY 03/20/20 Trazodone HCl [Desyrel 50 mg Tablet] 50 mg PO HSP PRN 03/20/20 History of Present Illiness History of Present Illness: MARIA L KHAN is a 19 year old female Physical Exam Vital Signs: Temp Pulse Resp BP Pulse Ox 98.2 F 81 18 129/79 H 100 03/21/20 09:57 03/21/20 08:36 03/21/20 07:58 03/21/20 08:36 03/21/20 08:36 Intake & Output 03/20/20 03/21/20 03/22/20 06:59 06:59 06:59 Intake Total 100 1150 Output Total 5 Balance 100 1145 Weight 58.2 kg 59.4 kg Results Laboratory Results: WBC 12.5 10^3/uL (4.0-10.5) H 03/20/20 01:08 RBC 4.43 10^6/uL (3.72-5.28) 03/20/20 01:08 Hgb 12.4 g/dL (12.0-15.5) 03/20/20 01:08 Hct 37.0 % (36.0-47.0) 03/20/20 01:08 MCV 84 fl (80-97) 03/20/20 01:08 MCH 28.1 pg (27.0-33.4) 03/20/20 01:08 MCHC 33.6 g/dL (32.0-36.0) 03/20/20 01:08 RDW 14.1 % (11.5-14.0) H 03/20/20 01:08 Plt Count 231 10^3/uL (150-450) 03/20/20 01:08 Lymph % (Auto) 23.0 % (13-45) 03/20/20 01:08 Wirt % (Auto) 6.0 % (3-13) 03/20/20 01:08 Eos % (Auto) 17.4 % (0-6) H 03/20/20 01:08 Baso % (Auto) 0.9 % (0-2) 03/20/20 01:08 Absolute Neuts (auto) 6.6 10^3/uL (1.7-8.2) 03/20/20 01:08 Absolute Lymphs (auto) 2.9 10^3/uL (0.5-4.7) 03/20/20 01:08 Absolute Monos (auto) 0.8 10^3/uL (0.1-1.4) 03/20/20 01:08 Absolute Eos (auto) 2.2 10^3/uL (0.0-0.6) H 03/20/20 01:08 Absolute Basos (auto) 0.1 10^3/uL (0.0-0.2) 03/20/20 01:08 Seg Neutrophils % 52.7 % (42-78) 03/20/20 01:08 Sodium 140.7 mmol/L (137-145) 03/20/20 01:08 Potassium 4.0 mmol/L (3.6-5.0) 03/20/20 01:08 Chloride 106 mmol/L (98-107) 03/20/20 01:08 Carbon Dioxide 27 mmol/L (22-30) 03/20/20 01:08 Anion Gap 8 (5-19) 03/20/20 01:08 BUN 14 mg/dL (7-20) 03/20/20 01:08 Creatinine 0.58 mg/dL (0.52-1.25) 03/20/20 01:08 Est GFR ( Amer) > 60 (>60) 03/20/20 01:08 Est GFR (MDRD) Non-Af > 60 (>60) 03/20/20 01:08 Glucose 100 mg/dL (75-110) 03/20/20 01:08 Calcium 9.7 mg/dL (8.4-10.2) 03/20/20 01:08 Total Bilirubin 0.3 mg/dL (0.2-1.3) 03/20/20 01:08 Direct Bilirubin 0.2 mg/dL (0.0-0.4) 03/20/20 01:08 Neonat Total Bilirubin Not Reportable 03/20/20 01:08 Neonat Direct Bilirubin Not Reportable 03/20/20 01:08 Neonat Indirect Bili Not Reportable 03/20/20 01:08 AST 29 U/L (14-36) 03/20/20 01:08 ALT 30 U/L (<35) 03/20/20 01:08 Alkaline Phosphatase 68 U/L (38-126) 03/20/20 01:08 Total Protein 6.7 g/dL (6.3-8.2) 03/20/20 01:08 Albumin 4.0 g/dL (3.5-5.0) 03/20/20 01:08 Serum HCG, Qual NEGATIVE (NEGATIVE) 03/20/20 10:16 Influenza A (RT-PCR) NEGATIVE (NEGATIVE) 03/20/20 04:08 Influenza B (RT-PCR) NEGATIVE (NEGATIVE) 03/20/20 04:08 RSV (RT-PCR) NEGATIVE (NEGATIVE) 03/20/20 04:08 SARS-CoV-2 Rap RNA(RT-PCR) NEGATIVE (NEGATIVE) 03/20/20 04:08
[2020-03-21 10:33] VITALS: BP 122/72
== END 2020-03-21 11:02 | disposition home or self-care (01) ==
LOC: ER 22:00 → EH 03-20 03:14 → INTOOBSV 03-20 03:14 → 4S 03-20 06:00 → 2S 03-21 08:33
PROVIDERS: ATTEND Surgery
DX: K61.1 Rectal abscess (principal); F41.1 Generalized anxiety disorder; F17.200 Nicotine dependence, unspecified, uncomplicated; Z01.812 Encounter for preprocedural laboratory examination; Z20.822 Contact with and (suspected) exposure to COVID-19; Z79.3 Long term (current) use of hormonal contraceptives; F32.9 Major depressive disorder, single episode, unspecified; Z79.899 Other long term (current) drug therapy
CPT/HCPCS: 99285; 36415; 87070; 87205; 84703; 85025; 0241U; 87075; 87077; 80053; 87186; 00902; 46040; G0378 ×3; J2250; J1100; J3010; J1885 ×2; J2270 ×2; J0330; J2405 ×2; J7050 ×2; J2704; J2543 ×2; J0131 ×2; C9803; 902